=== PATIENT | female | born 2005 | race Caucasian/White ===

== ENCOUNTER 2025-05-15 04:14 | Emergency (ER) | payer OTHER ==
[~2025-05-15] VITALS: Ht 162.6 cm; Wt 97.5 kg
[2025-05-15 06:13] VITALS: TEMP 98.8
[2025-05-15 06:44] LABS: PREGNANCY TEST URINE QUAL NEGATIVE (NEGATIVE)
[2025-05-15] MEDS ORDERED: METOCLOPRAMIDE HCL 10 MG/2 ML VIAL ONE (06:54)
[2025-05-15] MEDS ORDERED: ACETAMINOPHEN 325 MG TABLET ONE (06:54)
[2025-05-15] MEDS: METOCLOPRAMIDE HCL 10 MG/2 ML VIAL IV ONE (06:56)
[2025-05-15] MEDS: ACETAMINOPHEN 325 MG TABLET PO ONE (06:56)
[2025-05-15] MEDS: IV NS 0.9% 1,000 ML BAG IV ONE (06:56)
[2025-05-15] MEDS: KETOROLAC TROMETHAMINE 15 MG/ML VIAL IV ONE (07:05)
[2025-05-15] MEDS ORDERED: PROCHLORPERAZINE EDISYLATE 10 MG/2 ML VIAL ONE (08:35)
[2025-05-15] MEDS ORDERED: dexaMETHasone SOD PHOSPHATE 1 ML ONE (08:35)
[2025-05-15] MEDS: PROCHLORPERAZINE EDISYLATE 10 MG/2 ML VIAL IVP ONE (08:38)
[2025-05-15] MEDS: dexaMETHasone SOD PHOSPHATE 10 MG/ML VIAL IV ONE (08:43)
[2025-05-15] MEDS ORDERED: KETO10TA2 PO (09:14)
[2025-05-15] MEDS ORDERED: PROC10TA29 PO (09:14)
[2025-05-15 09:45] VITALS: BP 111/73; O2SAT 99
== END 2025-05-15 09:30 | disposition home or self-care (01) ==
LOC: ER 04:14
DX: R51.9 Headache, unspecified (principal)
CPT/HCPCS: 99284; 96374; 96375; 96361; 84703; J0780; J1100; J1200; J2765; J7030